=== PATIENT | male | born 1930 | race Caucasian/White ===

== ENCOUNTER 2016-05-13 12:04 | Outpatient (CLI) | payer MEDICARE, OTHER ==
[2016-05-13 12:38] LABS: #Eosinphils 0.3 thou/uL (0.0-0.7); #Lymphocytes 1.3 thou/uL (1.20-3.40); #Monocytes 0.5 thou/uL (0.11-0.59); %Basophils 0.6 % (0.0-1.0); %Eosinophils 3.8 % (0.0-10.0); %Lymphocytes 17.9 % (21.0-51.0); %Monocytes 7.3 % (0.0-10.0); Hematocrit 38.9 % (42.0-52.0); Red Blood Cell (RBC) Count 4.11 mill/uL (4.70-6.10); White Blood Cell (WBC) Count 7.1 thou/uL (4.8-10.8)
[2016-05-13 12:52] LABS: ALT (SGPT) 15 U/L (0-55); AST (SGOT) 13 U/L (5-34); Alkaline Phosphatase 61 U/L (40-150); Anion Gap 15 mmol/L (10-20); BUN (Urea Nitrogen) 42 mg/dL (8.4-25.7); Bilirubin, Direct 0.1 mg/dL (0.1-0.3); Bilirubin, Total 0.3 mg/dL (0.2-1.2); Calc. Creatinine Clearance 0 mL/min (70-130); Calcium 8.8 mg/dL (7.8-10.44); Carbon Dioxide 16 mmol/L (23-31); Chloride 114 mmol/L (98-107); Estimated GFR-MDRD 37; LDL Cholesterol, Calculated 72 mg/dL; Protein, Total 6.9 g/dL (5.8-8.1)
[2016-05-13 13:02] LABS: Hemoglobin A1c 5.4 % (4.0-6.0)
== END 2016-05-13 12:05 | disposition home or self-care (01) ==
LOC: NAVSJIPCSP 12:04
PROVIDERS: ATTEND Family Medicine
DX: C61 Malignant neoplasm of prostate (principal); E11.9 Type 2 diabetes mellitus without complications; I10 Essential (primary) hypertension; E78.00 Pure hypercholesterolemia, unspecified; Z79.899 Other long term (current) drug therapy
CPT/HCPCS: 36415; 80048; 80061; 80076; 83036; 84443; 85025

== ENCOUNTER 2016-09-15 11:33 | Outpatient (CLI) | payer MEDICARE, OTHER ==
[2016-09-15 13:45] LABS: #Basophils 0.1 thou/uL (0.0-0.2); #Eosinphils 0.4 thou/uL (0.0-0.7); #Lymphocytes 1.4 thou/uL (1.20-3.40); #Monocytes 0.6 thou/uL (0.11-0.59); #Neutrophils 4.4 thou/uL (1.40-6.50); %Basophils 0.8 % (0.0-1.0); %Eosinophils 6.4 % (0.0-10.0); %Lymphocytes 20.4 % (21.0-51.0); %Monocytes 8.1 % (0.0-10.0); %Neutrophils 64.5 % (42.0-75.0); Hemoglobin 12.9 g/dL (14.0-18.0); Mean Corpuscular HGB CONC 30.9 g/dL (32.0-36.0); Mean Corpuscular Hemoglobin 28.8 pg (27.0-31.0); Mean Corpuscular Volume 93.3 fl (80.0-94.0); Mean Platelet Volume 8.2 fL (7.4-10.4); Platelet Count 137 thou/uL (130-400); RBC Distribution Width 12.9 % (11.5-14.5); Red Blood Cell (RBC) Count 4.48 mill/uL (4.70-6.10); White Blood Cell (WBC) Count 6.8 thou/uL (4.8-10.8)
[2016-09-15 13:58] LABS: ALT (SGPT) 25 U/L (8-55); AST (SGOT) 22 U/L (5-34); Albumin 4.1 g/dL (3.4-4.8); Alkaline Phosphatase 76 U/L (40-150); Anion Gap 16 mmol/L (10-20); BUN (Urea Nitrogen) 28 mg/dL (8.4-25.7); Bilirubin, Direct 0.2 mg/dL (0.1-0.3); Bilirubin, Total 0.4 mg/dL (0.2-1.2); Calc. Creatinine Clearance 0 mL/min (70-130); Calcium 9.2 mg/dL (7.8-10.44); Carbon Dioxide 24 mmol/L (23-31); Cardiac Risk 3.2 (Less than 4.5); Chloride 108 mmol/L (98-107); Cholesterol 151 mg/dl (< 200 Desired); Estimated GFR-MDRD 38; Glucose 145 mg/dL (83-110); HDL Cholesterol 47 mg/dL (>60 Neg Risk); LDL Cholesterol, Calculated 83 mg/dL; Protein, Total 6.7 g/dL (5.8-8.1); Sodium 142 mmol/L (136-145); Triglycerides 106 mg/dL (Less than 150)
[2016-09-15 14:14] LABS: PSA-Asymptomatic (SCREENING) 0.89 ng/mL (0-4.0); Thyroid Stimulating Hormone 1.6335 uIU/mL (0.35-4.94)
[2016-09-15 14:39] LABS: Hemoglobin A1c 5.8 % (4.0-6.0)
== END 2016-09-15 11:34 | disposition home or self-care (01) ==
LOC: NAVSJIPCSP 11:33
PROVIDERS: ATTEND Family Medicine
DX: Z12.5 Encounter for screening for malignant neoplasm of prostate (principal); E78.00 Pure hypercholesterolemia, unspecified; E11.9 Type 2 diabetes mellitus without complications; I10 Essential (primary) hypertension; Z79.899 Other long term (current) drug therapy
CPT/HCPCS: 36415; 80048; 80061; 80076; 83036; 84443; 85025; G0103

== ENCOUNTER 2018-01-07 13:04 | Emergency (ER) | payer MEDICARE, OTHER ==
[2018-01-07] MEDS ORDERED: Lidocaine 1% (PF) 30 ML VIAL ONE (13:51)
[2018-01-07] MEDS ORDERED: Adacel (T-DAP) 0.5 ML VIAL ONE (14:25)
[2018-01-07] MEDS ORDERED: Bacitracin Zinc 1 Packet ONE (14:25)
== END 2018-01-07 14:40 | disposition home or self-care (01) ==
LOC: NAV ERS 13:04
DX: S61.212A Laceration without foreign body of right middle finger without damage to nail, initial encounter (principal); S61.216A Laceration without foreign body of right little finger without damage to nail, initial encounter; E11.9 Type 2 diabetes mellitus without complications; E78.5 Hyperlipidemia, unspecified; I10 Essential (primary) hypertension; W18.30XA Fall on same level, unspecified, initial encounter
CPT/HCPCS: 12002; 90471; 90715; J2001

== ENCOUNTER 2018-01-14 10:03 | Emergency (ER) | payer MEDICARE, OTHER ==
[2018-01-14] MEDS ORDERED: Ibuprofen 800 MG TAB ONE (11:15)
== END 2018-01-14 11:28 | disposition home or self-care (01) ==
LOC: NAV ERS 10:03
DX: S61.216D Laceration without foreign body of right little finger without damage to nail, subsequent encounter (principal); E11.9 Type 2 diabetes mellitus without complications; I10 Essential (primary) hypertension; E78.5 Hyperlipidemia, unspecified
CPT/HCPCS: 99282

== ENCOUNTER 2018-06-06 17:21 | Emergency (ER) | payer MEDICARE, OTHER ==
[2018-06-06] MEDS ORDERED: Ketorolac Tromethamine 60 MG/2 ML VIAL ONE (17:45)
[2018-06-06] MEDS ORDERED: Bacitracin Zinc 1 Packet ONE (17:45)
--- NOTE | 2018-06-06 18:11 | RAD ---
LEFT SHOULDER THREE VIEWS: 06/06/18 HISTORY: Fall. Left shoulder injury. FINDINGS: Acromioclavicular and glenohumeral alignment are maintained. Moderate osteophytosis. No acute fractur e or dislocation. Old left posterolateral rib fractures are partially visualized. IMPRESSION: Degenerative changes left shoulder. No acute osseous abnormalities are demonstrated. POS: [facility]
--- NOTE | 2018-06-06 18:14 | RAD ---
LEFT RIBS THREE VIEWS CHEST ONE VIEW: 06/06/18 HISTORY: Fall. Chest pain after injury. FINDINGS: Old healed fractures of the posterolateral aspect of the left ribs 8 and 9 are apparent. No acute dis placed rib fracture is visible. No evidence of pneumothorax. Cardiac silhouette and pulmonary vascula ture are unremarkable. No lobar consolidation. IMPRESSION: Old left posterolateral lower rib fractures. No acute abnormalities are demonstrated. POS: [facility]
== END 2018-06-06 18:25 | disposition home or self-care (01) ==
LOC: NAV ERS 17:21
DX: S40.012A Contusion of left shoulder, initial encounter (principal); S20.212A Contusion of left front wall of thorax, initial encounter; I10 Essential (primary) hypertension; E78.5 Hyperlipidemia, unspecified; E11.9 Type 2 diabetes mellitus without complications; Z79.899 Other long term (current) drug therapy; W19.XXXA Unspecified fall, initial encounter
CPT/HCPCS: 96372; J1885

== ENCOUNTER 2019-10-19 09:43 | Outpatient (CLI) | payer MEDICARE, OTHER ==
--- NOTE | 2019-10-19 10:27 | RAD ---
LUMBAR SPINE 3 VIEWS: HISTORY: Claudication of the left lower extremity, low back pain. FINDINGS: Very severe multilevel disk-osteophytosis, particularly at L2-L3. Severe facet arthrosis. No overt acute fracture or dislocation. Postoperative changes noted in the right side of the abdomen. Osteop hytosis changes noted of the left SI joint region. IMPRESSION: Very severe disk-osteophytosis and facet arthrosis. Other findings as above. No acute fracture. POS: [facility]
== END 2019-10-19 09:44 | disposition home or self-care (01) ==
LOC: NAV RAD 09:43
PROVIDERS: ATTEND Family Medicine
DX: I73.9 Peripheral vascular disease, unspecified (principal); M25.78 Osteophyte, vertebrae; M46.96 Unspecified inflammatory spondylopathy, lumbar region; Z98.890 Other specified postprocedural states
CPT/HCPCS: 72100